=== PATIENT | male | born 1975 | race Caucasian/White ===

== ENCOUNTER → 2024-02-13 | Outpatient (CLI) | payer BC, SELFPAY ==
--- NOTE | 2024-02-13 07:32 | CT_ITS ---
STUDY: CT ABDOMEN AND PELVIS WITH AND WITHOUT CONTRAST REASON FOR EXAM: Male, 49 years old. HEMATURIA RADIATION DOSAGE (If Supplied By Facility): CTDIvol = ( 23.48 ) mGy, DLP = ( 3785.42 ) mGycm TECHNIQUE: Transaxial images were obtained from the dome of the diaphragm to the symphysis pubis without oral contrast. IV 100mL Isovue-[id number] was administered. Sagittal and coronal images were reconstructed. Individualized dose optimization techniques were used for this CT. COMPARISON: None. FINDINGS: The visualized lung bases are unremarkable. The visualized portions of the heart are within normal limits. There is decreased attenuation of the liver consistent with steatosis. The gallbladder is contracted. Borderline splenomegaly. Normal pancreas. Normal bilateral adrenal glands. Normal right kidney. There is a 7.1 mm calculus in the central calyx of the left kidney.. No significant left hydronephrosis seen. Normal visualized stomach. Normal small intestine. There are scattered colonic diverticula consistent with diverticulosis. The appendix is visualized and appears normal. There is scattered atherosclerotic calcification of the abdominal aorta, without a demonstrated aneurysm. Normal inferior vena cava. Normal retroperitoneum. Normal urinary bladder. There is a small umbilical hernia containing fat. There are mild degenerative changes of the visualized lumbar spine. CT/CT Abd/Pelvis W/WO Contrast IMPRESSION: 7.1 mm nonobstructive calculus in the central calyx of the left kidney. No evidence of hydronephrosis. Fatty infiltration of the liver. Borderline splenomegaly. Electronically Signed: Rajendra Garcia MD at 9:34 EDT ,
== END | disposition home or self-care (01) ==
LOC: CT 07:31
PROVIDERS: Referring Provider Urology; Visit Provider Urology
DX: R31.29 Other microscopic hematuria (principal)
CPT/HCPCS: 74178; Q9967

== ENCOUNTER 2024-03-31 07:40 | Observation (INO) | payer BC, SELFPAY ==
--- NOTE | 2024-03-30 14:12 | CT_ITS ---
STUDY: CT ABDOMEN AND PELVIS WITHOUT CONTRAST REASON FOR EXAM: Male, 49 years old. SUSPECTED KIDNEY STONE. 11 day history of left flank pain. Recent lithotripsy. RADIATION DOSAGE (If Supplied By Facility): CTDIvol = ( 12.29 ) mGy, DLP = ( 638.47 ) mGycm TECHNIQUE: Transaxial images were obtained from the dome of the diaphragm to the symphysis pubis without oral contrast, and without intravenous contrast. Sagittal and coronal images were reconstructed. Individualized dose optimization techniques were used for this CT. COMPARISON: Comparison is made with prior study dated February 13, 2024. FINDINGS: The visualized lung bases are unremarkable. Coronary artery calcification. There is decreased attenuation of the liver consistent with steatosis. Normal gallbladder and extrahepatic biliary system. Borderline splenomegaly. Normal pancreas. Normal bilateral adrenal glands. Normal right kidney. Mild degree of left hydronephrosis. Mild degree of left perinephric stranding. The previously seen 7.1 mm calculus in the central calyx of the left kidney is not seen at this time. A punctate calculus is seen in the lower pole calyx of the left kidney. There is a 7 mm calculus in the proximal portion of the left ureter. Normal visualized stomach. Normal small intestine. Normal colon. The appendix is visualized and appears normal. Normal abdominal aorta. Normal inferior vena cava. Normal retroperitoneum. Normal urinary bladder. There is a right-sided inguinal hernia containing adipose tissue. Small umbilical hernia containing fat. There are mild degenerative changes of the visualized lumbar spine. CT/Abdomen/Pelvis without Cont IMPRESSION: 7 mm calculus in the proximal portion of left ureter causing left hydronephrosis and proximal left hydroureter with mild degree of left perinephric stranding. Electronically Signed: Rajendra Garcia MD at 14:41 EDT ,
[2024-03-30 15:21] VITALS: BMI 29.0
[2024-03-30 15:37] VITALS: BP 145/94; PULSE 81; RESP 18; TEMP 36.8; O2SAT 93
[2024-03-30] MEDS: 0.9% Saline Lock 10 ML Syringe IV ×2 (16:16→21:30)
[2024-03-30] MEDS: Morphine 2 MG/ML Syringe IV (16:16)
[2024-03-30] MEDS: Cefazolin 1 GM/50 ML BAG IV ×2 (16:51→21:30)
[2024-03-30] MEDS: 0.9% Normal Saline (250mL Bag) 250 ML 15 ML IV (16:54)
[2024-03-30] MEDS: Ketorolac 15 MG/ML Vial IM (19:53)
[2024-03-30 20:14] VITALS: BP 146/95; PULSE 79; RESP 16; TEMP 36.7; O2SAT 95
[2024-03-31] VITALS (9 sets, daily range): BP systolic 128–148; BP diastolic 90–108; PULSE 51–78; RESP 16–18; TEMP 36.3–36.8; O2SAT 95–99; BMI 28.8
[2024-03-31] MEDS: Morphine 2 MG/ML Syringe IV (01:17)
[2024-03-31] MEDS: 0.9% Saline Lock 10 ML Syringe IV ×2 (01:17→05:37)
[2024-03-31] MEDS: Cefazolin 1 GM/50 ML BAG IV ×2 (05:37→13:01)
[2024-03-31] MEDS: Ketorolac 15 MG/ML Vial IM ×2 (05:40→12:22)
--- NOTE | 2024-03-31 06:00 | EKG12_ITS ---
Test Reason : PRE-OP Blood Pressure : / mmHG Vent. Rate : 061 BPM Atrial Rate : 061 BPM P-R Int : 130 ms QRS Dur : 086 ms QT Int : 402 ms P-R-T Axes : 034 014 009 degrees QTc Int : 404 ms Normal sinus rhythm Normal ECG No previous ECGs available Confirmed by ENOC POMPA, TANA ([id number]), features editor MAGNOLIA DAVID ([id number]) on 04/01/2024 6:34:46 AM Referred By: Lou Wooten Confirmed By:KEKE STUBBS MD
[2024-03-31 07:23] LABS: Absolute Lymphocyte Count 1.66 X10^3/uL (0.83-4.51); Absolute Neutrophil Count 6.9 X10^3/uL (2.0-7.7); Basophil# 0.06 X10^3/uL; Basophil% 0.6 % (0-1); Eosinophil# 0.16 X10^3/uL; Eosinophils% 1.6 % (0-5); Hematocrit 45.9 % (40-54); Hemoglobin 15.5 g/dL (13.0-16.5); Lymphocyte # 1.66 X10^3/ul (0.83-4.51); Lymphocyte % 16.8 % (19-41); Mean Corp Hgb Conc 33.8 g/dL (32-36); Mean Corpuscular Hgb 30.2 pg (27.0-32.0); Mean Corpuscular Volume 89.3 fL (80-94); Mean Platelet Vol. 9.6 fl (6.2-12.0); Monocyte# 0.87 X10^3/uL; Monocyte% 8.8 % (0-10); NRBC Flagged by Analyzer 0 % (0-5); Neutrophil # 6.94 X10^3/uL (2.7-7.7); Neutrophil % 70.1 % (47-70); Platelet Count 187 K/mm3 (150-450); RBC Distribution Width CV 12.7 % (11.6-14.6); RBC Distribution Width SD 41.7 fl (35.1-43.9); Red Blood Count 5.14 M/mm3 (4.6-6.2); White Blood Count 9.9 K/mm3 (4.4-11.0)
--- NOTE | 2024-03-31 11:30 | HP.PCM_ITS ---
HPI - General General Date of Admission: 03/30/24 Date of Service: 03/30/24 Chief Complaint: Severe pain from ureteral calculi HPI Narrative ALBERTA WHITFIELD, is a 49 M who presents to the hospital admission for severe pain for a proximal ureteral calculi in the left side he underwent shockwave lithotripsy but the fragments got stuck in the proximal left ureter came back to my office in severe excruciating pain so he was admitted to the hospital again and taken to surgery today for ureteroscopy laser of the stone fragments or just stent. [facility] Medical History (Updated 03/31/24 @ 11:[address] Seferino Alva MD) Kidney stones Sleep apnea HLD (hyperlipidemia) Home Medications ?Medication ?Instructions ?Recorded ?Last Taken ?Type aspirin 81 mg tablet,delayed 81 mg PO DAILY 03/30/24 Unknown History release (Adult Low Dose Aspirin) atorvastatin 80 mg tablet 40 mg PO DAILY cholesterol 03/30/24 03/29/24 History ciprofloxacin HCl 500 mg tablet 500 mg PO BID #10 tabs 03/31/24 Unknown Rx docusate sodium 100 mg capsule 100 mg PO BID #10 caps 03/31/24 Unknown Rx (Colace) oxycodone 5 mg tablet 5 mg PO Q6H PRN pain 7 days #14 03/31/24 Unknown Rx tabs tamsulosin 0.4 mg capsule (Flomax) 0.4 mg PO DAILY #10 caps 03/31/24 Unknown Rx Allergy/AdvReac Type Severity Reaction Status Date / Time Penicillins (PCN) Allergy Mild unknown Verified 03/30/24 15:26 Social History Smoking Status: Current every day smoker tobacco type: cigarettes Vital Signs Vital Signs Vital Signs: 03/30/24 15:37 03/30/24 20:14 03/30/24 20:14 Temperature 98.3 F 98.1 F Temperature Source Oral Oral Pulse Rate 81 79 Pulse Strength Respiratory Rate 18 16 Respiratory Effort Normal Respiratory Depth Normal Respiratory Pattern Normal Blood Pressure 145/94 H 146/95 H Blood Pressure Mean 111 112 Blood Pressure Source Monitor Blood Pressure Position Semi-Fowlers Blood Pressure Location Left Arm Pulse Ox 93 95 Oxygen Delivery Method Room Air Room Air Room Air 03/30/24 20:14 03/30/24 20:14 03/31/24 01:26 Temperature 98.1 F 97.8 F Temperature Source Oral Oral Pulse Rate 79 64 Pulse Strength Normal (2+) Respiratory Rate 16 16 Respiratory Effort Respiratory Depth Respiratory Pattern Blood Pressure 146/95 H 128/92 H Blood Pressure Mean 112 104 Blood Pressure Source Monitor Blood Pressure Position Supine Blood Pressure Location Left Arm Pulse Ox 95 96 Oxygen Delivery Method Room Air Room Air 03/31/24 01:26 03/31/24 01:26 03/31/24 06:04 Temperature 97.8 F 97.9 F Temperature Source Oral Oral Pulse Rate 64 67 Pulse Strength Respiratory Rate 16 16 Respiratory Effort Normal Respiratory Depth Normal Respiratory Pattern Normal Blood Pressure 128/92 H 141/96 H Blood Pressure Mean 104 111 Blood Pressure Source Monitor Blood Pressure Position Semi-Fowlers Blood Pressure Location Left Arm Pulse Ox 96 97 Oxygen Delivery Method Room Air Room Air Room Air 03/31/24 06:04 03/31/24 08:34 03/31/24 08:35 Temperature 97.9 F 98.1 F Temperature Source Oral Temporal Pulse Rate 67 51 L Pulse Strength Normal (2+) Respiratory Rate 16 18 Respiratory Effort Respiratory Depth Respiratory Pattern Blood Pressure 141/96 H 133/94 H Blood Pressure Mean 111 107 Blood Pressure Source Monitor Monitor Blood Pressure Position Semi-Fowlers Semi-Fowlers Blood Pressure Location Left Arm Left Arm Pulse Ox 97 99 Oxygen Delivery Method Room Air Room Air Weight Weight: 93.894 kg Body Mass Index (BMI) 28.8 Results Lab / Micro Data 03/31/24 06:08 Labs: Laboratory Results - last 24 hr 03/31/24 06:08: WBC 9.9, RBC 5.14, Hgb 15.5, Hct 45.9, MCV 89.3, MCH 30.2, MCHC 33.8, RDW Std Deviation 41.7, RDW Coeff of Lencho 12.7, Plt Count 187, MPV 9.6, I mmature Gran % (Auto) 2.100 H, Neut % (Auto) 70.1 H, Lymph % (Auto) 16.8 L, Hud[place]eth % (Auto) 8.8, Eos % (Auto) 1.6, Baso % (Auto) 0.6, Absolute Neuts (auto) 6.9, Absolute Lymphs (auto) 1.66, Nucleated RBC % 0 Imaging Radiology Impression Abdomen/Pelvis CT 03/30/24 14:12 IMPRESSION: 7 mm calculus in the proximal portion of left ureter causing left hydronephrosis and proximal left hydroureter with mild degree of left perinephric stranding. Electronically Signed: Rajendra Garcia MD at 14:41 EDT ,
--- NOTE | 2024-03-31 11:31 | DCINST_ITS ---
Discharge Instructions Diet Discharge Diet: No restrictions Activity Discharge Activity: Return to Normal Activity and May Not Drive (while taking narcotic pain medications.) Dressing / Incision Call your doctor if you observe: Fever of 101 or Higher Follow Up Care Please Follow Up With: Seferino Alva MD When: Call [phone] for an appointment Test Results: Test results from this visit will be discussed in further detail at your follow- up appointment, if applicable. Discharge Plan Admission Admit Date/Time: 03/31/24 07:40 Primary Reason for Your Visit: laser stone Attending Provider: Lou Wooten Primary Care Provider: Care Physician,No Primary Discharge Orders/Prescriptions Prescriptions: New oxycodone 5 mg tablet 5 mg PO Q6H PRN (Reason: pain) 7 Days Qty: 14 0RF ciprofloxacin HCl 500 mg tablet 500 mg PO BID Qty: 10 0RF tamsulosin [Flomax] 0.4 mg capsule 0.4 mg PO DAILY Qty: 10 0RF docusate sodium [Colace] 100 mg capsule 100 mg PO BID Qty: 10 0RF No Action atorvastatin 80 mg tablet 40 mg PO DAILY aspirin [Adult Low Dose Aspirin] 81 mg tablet,delayed release (DR/EC) 81 mg PO DAILY Referrals / Follow Up: Seferino Alva MD [Med Staff - Active Staff] - Care Physician,No Primary [Primary Care Provider] - Disposition Discharge Orders: Discharge Patient (Routine); Ordered 03/31/24 Ordered By: Dr. Seferino Alva
--- NOTE | 2024-03-31 11:57 | PCM.OPRPT ---
Report of Operation Date of Procedure: 03/31/24 Pre-Operative Diagnosis: Obstructing left proximal ureteral calculi Post-Operative Diagnosis: Same Surgery/Procedure Performed:: Cystoscopy balloon dilation of the left distal ureter left ureteroscopy and left stent placement Description of Surgical Findings:: 49-year-old male underwent shockwave lithotripsy for stone in the kidney then presented my office with severe renal colic yesterday he was admitted for pain control CAT scan was done and demonstrated obstructing stones in the proximal left ureter has not been able to pass despite the fact that the stones were broken up quite small. So today when taken back to surgery. Patient was taken back to the operating room at a smooth induction of anesthesia he was placed in dorsolithotomy position the penis testicles prepped and draped in usual sterile fashion went in the bladder with a 21 [place] rigid cystourethroscope cannulated the left ureter orifice with a Glidewire I then advanced a 12 [place] balloon dilator and balloon dilated the distal ureter I then went up with the flexible ureteroscope then I noticed I could not get up to the stones he had a very pinpoint opening looks like it is proximal to the ureter and proximal to the stones I can get the wire through the pinpoint opening past the stones and up of the kidney so I then left-sided just leave the stent in for now the left is dilate naturally with the bring back later to laser the stones out. Therefore it explains why the stones would not pass since there was a very narrow part in the ureter. Once I put the stent in the stent coiled the kidney bladder good position I did leave a string on the stent but I cut the string short to prevent extraction. What to set him up for second surgery for ureteroscopy and laser of the left ureter stretch open in the next 2 weeks. Surgeon: Seferino Alva Type of Anesthesia: General Drains: stent Admit VTE Documentation VTE Present on Admission: No VTE Mechan Device Prophylaxis: SCD's VTE Pharm Prophylaxis ordered?: No
--- NOTE | 2024-03-31 13:48 | CASEMGMT ---
Social Work SW met with pt to discuss advance directives.? Pt confirms he has completed a living will and health care POA naming his Corrina Barrett.? Pt notified that documents are not on file at [facility] and SW requested they be brought in for scanning into the EMR.? RADHA Kaur
--- NOTE | 2024-03-31 14:32 | CASEMGMT ---
THOMAS CM into pt room, pt up and dressed ready for dc. 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 Pt denies need for PCP list local to his home. Pt denies any homegoing needs at this time. present in room and agrees.
--- NOTE | 2024-03-31 14:39 | PHA.DC.MR.R ---
Pharmacy [place] Med Reconciliation Pharmacy Service has performed discharge medication reconciliation for this patient. Patient discharged when counseling was attempted. Medications reviewed. The patient's discharge medication list was reviewed for discrepancies and discrepancies were resolved. Medications at Discharge Home Medications aspirin 81 mg tablet,delayed release (Adult Low Dose Aspirin) 81 mg PO DAILY 03/30/24 atorvastatin 80 mg tablet 40 mg PO DAILY cholesterol 03/30/24 ciprofloxacin HCl 500 mg tablet 500 mg PO BID #10 tabs 03/31/24 docusate sodium 100 mg capsule (Colace) 100 mg PO BID #10 caps 03/31/24 oxycodone 5 mg tablet 5 mg PO Q6H PRN pain 7 days #14 tabs 03/31/24 tamsulosin 0.4 mg capsule (Flomax) 0.4 mg PO DAILY #10 caps 03/31/24
== END 2024-03-31 14:35 | disposition home or self-care (01) ==
PROVIDERS: Anesthesiology; Admitting Provider Urology; Visit Provider Nurse Practitioner
PROC: 0TJ98ZZ Inspection of Ureter, Via Natural or Artificial Opening Endoscopic (ICD-10-PCS; CPT 52352; principal; 2024-03-31 11:35)
DX: N13.2 Hydronephrosis with renal and ureteral calculous obstruction (principal); Z79.82 Long term (current) use of aspirin; E78.5 Hyperlipidemia, unspecified; F17.210 Nicotine dependence, cigarettes, uncomplicated; Z79.899 Other long term (current) drug therapy
CPT/HCPCS: 52332; 52344; 00910; 36415; 74176; 76000; 85025; 93005; 96365; 96366; 96375; 96376; J7050; A4216; C1769; J2405